=== PATIENT | female | born 1995 | race Caucasian/White ===

== ENCOUNTER 2016-10-27 21:38 | Emergency (ER) | payer SELFPAY ==
[~2016-10-27] VITALS: Ht 165.1 cm; Wt 53.3 kg
[2016-10-27 22:39] VITALS: BP 129/87; PULSE 68; RESP 18; TEMP 98.1; O2SAT 98
--- NOTE | 2016-10-27 23:11 | PD ---
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 She has reason to believe that the woman that had sex with her boyfriend has been diagnosed with chlamydia. The patient does not have any symptoms of abdominal pain fever or dysuria. She is requesting treatment PFSH Past Medical History Diminished Hearing: No Headaches: Yes Neurologic: Yes (PINEAL CYST) Immunizations Current: Yes ?: Not LMP: 10/24/2016 Social History Alcohol Use: No Tobacco Use: No Substance Use: No Allergies-Medications (Allergen,Severity, Reaction): Coded Allergies: penicillin G (Verified Allergy, Severe, Hives, 10/27/16) Reported Meds & Prescriptions Reported Meds & Active Scripts Active No Active Prescriptions or Reported Medications Review of Systems General / Constitutional: No: Fever, Chills Genitourinary: No: Urgency, Frequency Physical Exam Narrative GENERAL: Well-developed female SKIN: Focused skin assessment warm/dry. HEAD: Atraumatic. Normocephalic. EYES: Pupils equal and round. No scleral icterus. No injection or drainage. ENT: No nasal bleeding or discharge. Mucous membranes pink and moist. NECK: Trachea midline. No JVD. GASTROINTESTINAL: Abdomen soft, non-tender, nondistended. Hepatic and splenic margins not palpable. MUSCULOSKELETAL: No obvious deformities. No clubbing. No cyanosis. No edema. NEUROLOGICAL: Awake and alert. No obvious cranial nerve deficits. Motor grossly within normal limits. Normal speech. PSYCHIATRIC: Appropriate mood and affect; insight and judgment normal. Data Data Last Documented VS Vital Signs Date Time Temp Pulse Resp B/P (MAP) Pulse Ox O2 Delivery O2 Flow Rate FiO2 10/27/16 22:55 (101) 10/27/16 22:39 98.1 68 18 98 Orders Orders Ceftriaxone Inj (Rocephin Inj) (10/27/16 23:15) Lidocaine 1% Inj (50 Ml) (Xylocaine 1% I (10/27/16 23:15) Azithromycin Powd Pack (Zithromax Powd P (10/27/16 23:15) [facility] Medical Decision Making Medical Screen Exam Complete: Yes Emergency Medical Condition: Yes Medical Record Reviewed: Yes Differential Diagnosis Differential includes Chlamydia exposure Narrative Course Patient will be treated with Rocephin and doxycycline Diagnosis Primary Impression: Possible exposure to STD Scripts No Active Prescriptions or Reported Meds Disposition: 01 DISCHARGE HOME Condition: Solitario Espinoza MD Oct 27, 2016 23:11
[2016-10-27] MEDS ORDERED: LIDOCAINE HCL 1% 50 ML VIAL XX ONE (23:15)
[2016-10-27] MEDS ORDERED: cefTRIAXone 250 MG VIAL IM ONE (23:15)
[2016-10-27] MEDS ORDERED: AZITHROMYCIN PWD FOR SUSP 1 GM PACKET PO ONE (23:15)
== END 2016-10-28 00:27 | disposition home or self-care (01) ==
LOC: PHED 21:38
DX: Z20.2 Contact with and (suspected) exposure to infections with a predominantly sexual mode of transmission (principal); Z86.69 Personal history of other diseases of the nervous system and sense organs
CPT/HCPCS: 96372; 99284; J0696

== ENCOUNTER 2017-06-20 14:08 | Emergency (ER) | payer OTHER ==
[2017-06-20] MEDS: LIDOCAINE HCL 1% 50 ML VIAL XX (16:00)
[2017-06-20] MEDS: cefTRIAXone 250 MG VIAL IM (16:12)
[2017-06-20] MEDS: AZITHROMYCIN PWD FOR SUSP 1 GM PACKET PO (16:12)
[2017-06-20] MEDS: LIDOCAINE HCL 1% PF 30 ML VIAL (16:13)
== END 2017-06-20 16:41 | disposition home or self-care (01) ==
LOC: PHED 14:08
DX: Z20.2 Contact with and (suspected) exposure to infections with a predominantly sexual mode of transmission (principal)
CPT/HCPCS: 96372; 99283-25